=== PATIENT | male | born 1950 | race Caucasian/White ===

== ENCOUNTER 2024-03-15 18:07 | Emergency (ER) | payer SELFPAY ==
[~2024-03-15 18:07] MED LIST: Calcium Chloride 1 GM/10 ML Abboject SYRINGE ONE; EPINEPHrine 1 MG/10 ML Abboject SYRINGE ONE
== END 2024-03-15 20:00 | disposition expired ==
LOC: EDBD 18:07 → BURERS 18:07
DX: I46.9 Cardiac arrest, cause unspecified (principal)
CPT/HCPCS: 92950; J0171